=== PATIENT | male | born 1965 | race Caucasian/White ===

== ENCOUNTER 2016-05-21 08:00 | Outpatient (CLI) | payer MEDICAID | END 2016-05-21 08:01 | disposition home or self-care (01) | DX: R39.11 Hesitancy of micturition (principal) ==

== ENCOUNTER 2016-05-21 11:53 | Outpatient (CLI) | payer MEDICAID | END 2016-05-21 11:54 | disposition home or self-care (01) | DX: R39.11 Hesitancy of micturition (principal) ==

== ENCOUNTER 2016-05-22 09:58 | Emergency (ER) | payer MEDICAID ==
[2016-05-22] MEDS ORDERED: SODIUM CHLORIDE 0.9% 1,000 ML IV ONE (10:54)
[2016-05-22] MEDS ORDERED: LIDOCAINE 2% URO-JET 5 ML SYRINGE UR ONE (13:08)
== END 2016-05-22 15:12 | disposition home or self-care (01) ==
DX: E86.0 Dehydration (principal); F17.200 Nicotine dependence, unspecified, uncomplicated

== ENCOUNTER 2016-07-03 14:04 | Outpatient (CLI) | payer MEDICAID ==
--- NOTE | 2016-07-04 08:57 | XRAY Report ---
LEFT KNEE, THREE VIEWS: 07/03/2016 CLINICAL HISTORY: Left knee pain. COMPARISON: None. FINDINGS: Soft tissues demonstrate small left suprapatellar fusion. Bones of the left knee show no acute abnormality. Minimal deformity of the medial aspect of the left fibular head is noted most likely related to old trauma. There is some callus formation seen silhouetting the posterior aspect of the left fibular head and proximal left fibular shaft, old trauma. Patella shows no significant abnormality. IMPRESSION: SUGGESTION OF SMALL LEFT SUPRAPATELLAR EFFUSION. JOB #: [id number] EXT JOB #: [id number] NAVYA
== END 2016-07-03 14:05 | disposition home or self-care (01) ==
LOC: DI.S 14:04
PROVIDERS: ATTEND Nurse Practitioner Family
DX: M25.562 Pain in left knee (principal)

== ENCOUNTER 2018-02-19 07:13 | Outpatient (CLI) | payer MEDICAID ==
[2018-02-19 10:25] LABS: BASOPHILS % (AUTO) 0.6 %; EOSINOPHILS # (AUTO) 0.1 10^3/uL (0.0-0.7); EOSINOPHILS % (AUTO) 1.3 %; HGB - HEMOGLOBIN 15.2 g/dL (14.0-18.0); LYMPHOCYTES # (AUTO) 1.9 10^3/uL (1.5-3.5); LYMPHOCYTES % (AUTO) 25.7 %; MEAN CORPUSCULAR HEMOGLOBIN 30.4 pg (27.0-31.0); MEAN CORPUSCULAR HGB CONC 34.5 g/dL (32.0-36.0); MEAN PLATELET VOLUME 9.1 fL (7.4-11.4); MONOCYTES # (AUTO) 0.8 10^3/uL (0.0-1.0); MONOCYTES % (AUTO) 10.5 %; NEUTROPHILS # (AUTO) 4.5 10^3/uL (1.5-6.6); NEUTROPHILS % (AUTO) 61.9 %; PLT - PLATELET COUNT 232 10^3/uL (130-450); RED BLOOD COUNT 5.01 10^6/uL (4.70-6.10); RED CELL DISTRIBUTION WIDTH 13.4 % (12.0-15.0); WHITE BLOOD COUNT 7.2 x10^3/uL (4.8-10.8)
[2018-02-19 10:30] LABS: ALBUMIN 4.9 g/dL (3.2-5.5); ALBUMIN/GLOBULIN RATIO 1.6 (1.0-2.2); ALKALINE PHOSPHATASE 56 IU/L (42-121); ALT ALANINE AMINOTRANSFERASE 34 IU/L (10-60); AST ASPARTATE AMINOTRANSFERASE 25 IU/L (10-42); BILIRUBIN,TOTAL 0.4 mg/dL (0.2-1.0); BUN - BLOOD UREA NITROGEN 22 mg/dL (6-20); CALCIUM 9.7 mg/dL (8.5-10.3); CARBON DIOXIDE - CO2 28 mmol/L (21-32); CHLORIDE 96 mmol/L (101-111); CHOL/HDL RATIO 2.4 (<5.0); CHOLESTEROL 114 mg/dL; CREATININE 1.1 mg/dL (0.6-1.2); GFR - MDRD 71 (>89); GLUCOSE 113 mg/dL (70-100); HDL CHOLESTEROL 48 mg/dL; SODIUM 134 mmol/L (135-145)
[2018-02-19 10:52] LABS: LDL CHOLESTEROL,DIRECT 58 mg/dL; LDLD/HDL RATIO 1.2 (<3.6)
== END 2018-02-19 07:14 | disposition home or self-care (01) ==
LOC: LAB.F 07:13
PROVIDERS: ATTEND Nurse Practitioner Family
DX: R10.84 Generalized abdominal pain (principal); Z13.220 Encounter for screening for lipoid disorders; Z12.5 Encounter for screening for malignant neoplasm of prostate
CPT/HCPCS: 36415; 80053; 80061; 83721; 84153; 85025

== ENCOUNTER 2018-03-06 06:09 | Day surgery (SDC) | payer MEDICAID ==
[2018-03-06] MEDS ORDERED: LACTATED RINGERS 1,000 ML IV ONE (07:00)
[2018-03-06] MEDS ORDERED: MIDAZOLAM 2 MG/2 ML VIAL IVP ONE (07:57)
[2018-03-06] MEDS ORDERED: fentaNYL 250 MCG/5 ML VIAL IVP ONE (07:57)
[2018-03-06] MEDS ORDERED: PROPOFOL 200 MG/20 ML VIAL IVP ONE (08:20)
[2018-03-06 09:17] VITALS: BP 109/81
== END 2018-03-06 06:10 | disposition home or self-care (01) ==
LOC: SDS 06:09
PROVIDERS: ATTEND Internal Medicine Gastroenterology
PROC: 0DJD8ZZ Inspection of Lower Intestinal Tract, Via Natural or Artificial Opening Endoscopic (ICD-10-PCS; principal; 2018-03-06 07:30)
DX: R19.4 Change in bowel habit (principal); R10.30 Lower abdominal pain, unspecified; K21.9 Gastro-esophageal reflux disease without esophagitis
CPT/HCPCS: 45378; J3010; J7120

== ENCOUNTER 2018-03-14 07:23 | Outpatient (CLI) | payer MEDICAID ==
[2018-03-14] MEDS ORDERED: IOVERSOL 320 50 ML VIAL ONE (07:50)
[2018-03-14] MEDS ORDERED: IOVERSOL 320 100 ML VIAL IVP ONE ×2 (07:50→08:50)
[2018-03-14] MEDS ORDERED: IOVERSOL 320 50 ML VIAL PO ONE (08:50)
--- NOTE | 2018-03-14 09:18 | CT Report ---
Reason: LOWER ABDOMINAL PAIN CHANGE OF BOWEL HABITS Procedure Date: 03/14/2018 Accession Number: [id number] / [id number] Procedure: CT - Abdomen/Pelvis W/ CPT Code: FULL RESULT: EXAM: CT ABDOMEN AND PELVIS EXAM DATE: 03/14/2018 08:48 AM. CLINICAL HISTORY: LOWER ABDOMINAL PAIN CHANGE OF BOWEL HABITS. COMPARISONS: ABDOMEN/PELVIS W/O 05/22/2016 12:45 PM. TECHNIQUE: Routine helical CT imaging was performed through the abdomen and pelvis. IV contrast: opti 320 80 ml. Enteric contrast: Yes. Reconstructions: Coronal and sagittal. In accordance with CT protocol optimization, one or more of the following dose reduction techniques were utilized for this exam: automated exposure control, adjustment of mA and/or KV based on patient size, or use of iterative reconstructive technique. FINDINGS: Lung Bases: 1.5 cm subpleural bleb at the medial basal right lower lobe. Liver: As before, there is a 4 cm long somewhat linear cluster of small dystrophic appearing calcifications superiorly in the anterior right hepatic lobe. Otherwise normal. Gallbladder/Bile Ducts: Unremarkable. Spleen: Normal. Pancreas: Normal. Adrenal Glands: Normal. Kidneys: Normal. No masses or hydronephrosis. Peritoneal Cavity/Bowel: Stomach and small bowel are unremarkable. Enteric contrast reaches mid ileum at the time of the scan. The unopacified terminal ileum is unremarkable. The appendix courses posteriorly from the cecum and is small in size. No appendicoliths are identified currently. There is no periappendiceal fat stranding. There is a small amount of formed stool scattered in the colon. No distinct colonic diverticula are identified. There is no morales colonic wall thickening. There is no focal pericolonic fat stranding. There is no lymphadenopathy, ascites, or pneumoperitoneum. Pelvic Organs: The bladder is normal in size. There is a 1.1 x 1.6 cm calculus in the right posterior bladder which was not present previously. There is no bladder wall thickening or perivesical edema. The prostate gland and seminal vesicles are unremarkable. Vasculature: There is minimal aortoiliac atherosclerotic calcification. Otherwise unremarkable. Bones: No significant abnormality. Other: Body wall is unremarkable. IMPRESSION: 1. 1.1 x 1.6 cm bladder calculus, new since 2017. 2. Linear cluster of dystrophic calcifications superiorly in the anterior right hepatic lobe, as before. 3. No specific findings identified to explain pain. RADIA
== END 2018-03-14 07:24 | disposition home or self-care (01) ==
LOC: DI 07:23
PROVIDERS: ATTEND Internal Medicine Gastroenterology
DX: R10.30 Lower abdominal pain, unspecified (principal); R19.4 Change in bowel habit; N21.0 Calculus in bladder; R16.0 Hepatomegaly, not elsewhere classified
CPT/HCPCS: 74177; Q9967

== ENCOUNTER 2018-05-25 08:44 | Emergency (ER) | payer MEDICAID ==
[2018-05-25 09:33] LABS: BASOPHILS % (AUTO) 0.2 %; HGB - HEMOGLOBIN 13.2 g/dL (14.0-18.0); MEAN CORPUSCULAR HEMOGLOBIN 29.1 pg (27.0-31.0); MEAN CORPUSCULAR HGB CONC 33.4 g/dL (32.0-36.0); MEAN PLATELET VOLUME 8.8 fL (7.4-11.4); MONOCYTES % (AUTO) 7.5 %; NEUTROPHILS % (AUTO) 91.3 %; PLT - PLATELET COUNT 243 10^3/uL (130-450); RED BLOOD COUNT 4.55 10^6/uL (4.70-6.10); RED CELL DISTRIBUTION WIDTH 13.1 % (12.0-15.0); WHITE BLOOD COUNT 21.3 x10^3/uL (4.8-10.8)
[2018-05-25 09:43] LABS: ABNORMAL LYMPHS % (MANUAL) 0 %
[2018-05-25 09:52] LABS: ALBUMIN 3.5 g/dL (3.2-5.5); ALBUMIN/GLOBULIN RATIO 0.7 (1.0-2.2); BILIRUBIN,TOTAL 0.9 mg/dL (0.2-1.0); CREATININE 1.4 mg/dL (0.6-1.2); TOTAL PROTEIN 8.4 g/dL (6.7-8.2)
[2018-05-25 10:49] LABS: BAND NEUTROPHILS % (MANUAL) 11 %; LYMPHOCYTES # (MANUAL) 0.4 10^3/uL (1.5-3.5); LYMPHOCYTES % (MANUAL) 2 %; MONOCYTES # (MANUAL) 0.6 10^3/uL (0.0-1.0); NEUTROPHILS # (MANUAL) 20.2 10^3/uL (1.5-6.6); NEUTROPHILS % (MANUAL) 84 %
[2018-05-25] MEDS ORDERED: IBUPROFEN 800 MG TABLET PO STA (10:49)
[2018-05-25 10:50] LABS: DIFFERENTIAL COMMENT MANUAL DIFFERENTIAL
[2018-05-25] MEDS ORDERED: SODIUM CHLORIDE 0.9% 1,000 ML IV ONE (11:00)
--- NOTE | 2018-05-25 11:04 | ED Physician Documentation ---
History of Present Illness - Stated complaint Stated Complaint: ABD PX/MALE - Chief complaint Chief Complaint: Abd Pain - History obtained from History obtained from: Patient - History of Present Illness Timing: How many weeks ago (2) - Additonal information Additional information: 52-year-old male with a history of bladder stone has developed increased pain in the bladder and a fever and now is developed difficulty urinating. He is finding that he is only able to urinate a very small amount and has a lot of pressure in his bladder. He has an appointment to see the urologist in [place] in 6 weeks. Review of Systems Constitutional: reports: Fever, Chills, Myalgias, Fatigue Eyes: denies: Decreased vision Ears: denies: Ear pain Nose: denies: Rhinorrhea / runny nose, Congestion Throat: denies: Sore throat Cardiac: denies: Chest pain / pressure, Palpitations Respiratory: denies: Dyspnea, Cough GI: reports: Abdominal Pain, Nausea, Diarrhea : reports: Dysuria, Unable to Void Skin: denies: Rash Musculoskeletal: reports: Back pain. denies: Neck pain Neurologic: reports: Generalized weakness. denies: Focal weakness, Numbness PD PAST MEDICAL HISTORY - Past Medical History Cardiovascular: None Respiratory: None Endocrine/Autoimmune: None - Past Surgical History Past Surgical History: Yes Ortho: Other HEENT: Tonsil/Adenoidectomy - Present Medications Home Medications: Ambulatory Orders Medication Instructions Recorded Confirmed Tamsulosin [Flomax] 0 mg PO DAILY 05/22/16 05/22/16 Ciprofloxacin HCl [Cipro] 500 mg PO BID #20 tablet 05/25/18 - Allergies Allergies/Adverse Reactions: Allergies Allergy/AdvReac Type Severity Reaction Status Date / Time Penicillins Allergy Hives Verified 05/25/18 09:06 aspirin AdvReac Unknown Verified 05/25/18 09:06 - Social History Does the pt smoke?: Yes Smoking Status: Current every day smoker Does the pt drink ETOH?: No Does the pt have substance abuse?: Yes Substance Use and Type: Marijuana PD ED PE NORMAL - Vitals Vital signs reviewed: Yes (tachy ) - General General: Alert and oriented X 3, No acute distress, Well developed/nourished - HEENT HEENT: Atraumatic, PERRL, EOMI - Neck Neck: Supple, no meningeal sign - Cardiac Cardiac: No murmur, Other (tachy to 120) - Respiratory Respiratory: No respiratory distress, Clear bilaterally - Abdomen Abdomen: Soft, Other (mild suprapubic tenderness to palpation ) - Back Back: No CVA TTP, No spinal TTP - Derm Derm: Normal color, No rash - Extremities Extremities: No deformity, No edema - Neuro Neuro: Alert and oriented X 3, staff genetic counselor 2-12 intact, No motor deficit, No sensory deficit, Normal speech Eye Opening: Spontaneous Motor: Obeys Commands Verbal: Oriented GCS Score: 15 - Psych Psych: Normal mood, Normal affect Results - Vitals Vitals: Vital Signs - 24 hr 05/25/18 05/25/18 05/25/18 09:04 10:06 10:39 Temperature 37.3 C 37.6 C H 39.7 C H Heart Rate 112 H Respiratory 18 Rate Blood Pressure 119/78 O2 Saturation 100 Oxygen O2 Source Room air - Labs Labs: Laboratory Tests 05/25/18 05/25/18 05/25/18 09:15 09:27 09:27 WBC 21.3 H RBC 4.55 L Hgb 13.2 L Hct 39.6 L MCV 87.0 MCH 29.1 MCHC 33.4 RDW 13.1 Plt Count 243 MPV 8.8 Neut # (Auto) Not Reportable Lymph # (Auto) Not Reportable [place] # (Auto) Not Reportable Eos # (Auto) Not Reportable Baso # (Auto) Not Reportable Absolute Nucleated RBC Not Reportable Total Counted 100 Band Neuts % (Manual) 11 H Abnorm Lymph % (Manual) 0 Nucleated RBC % Not Reportable Neutrophils # (Manual) 20.2 H Lymphocytes # (Manual) 0.4 L Monocytes # (Manual) 0.6 Eosinophils # (Manual) 0.0 Basophils # (Manual) 0.0 Differential Comment MANUAL DIFFERENTIAL WBC Morphology 1+ DOHLE BODIES Sodium 135 Potassium 3.8 Chloride 90 L Carbon Dioxide 30 Anion Gap 15.0 H BUN 27 H Creatinine 1.4 H Estimated GFR (MDRD) 54 L Glucose 157 H Lactic Acid Calcium 9.0 Total Bilirubin 0.9 AST 77 H ALT 144 H Alkaline Phosphatase 121 Total Protein 8.4 H Albumin 3.5 Globulin 4.9 H Albumin/Globulin Ratio 0.7 L Lipase 21 L Urine Color Cancelled Urine Clarity Cancelled Urine pH Cancelled Ur Specific [place] Cancelled Urine Protein Cancelled Urine Glucose (UA) Cancelled Urine Ketones Cancelled Urine Occult Blood Cancelled Urine Nitrite Cancelled Urine Bilirubin Cancelled Urine Urobilinogen Cancelled Ur Leukocyte Esterase Cancelled Urine RBC Urine WBC Ur Squamous Epith Cells Urine Bacteria Urine Casts Urine Mucus Ur Microscopic Review Cancelled Urine Culture Comments Cancelled 05/25/18 05/25/18 11:12 11:20 WBC RBC Hgb Hct MCV MCH MCHC RDW Plt Count MPV Neut # (Auto) Lymph # (Auto) [place] # (Auto) Eos # (Auto) Baso # (Auto) Absolute Nucleated RBC Total Counted Band Neuts % (Manual) Abnorm Lymph % (Manual) Nucleated RBC % Neutrophils # (Manual) Lymphocytes # (Manual) Monocytes # (Manual) Eosinophils # (Manual) Basophils # (Manual) Differential Comment WBC Morphology Sodium Potassium Chloride Carbon Dioxide Anion Gap BUN Creatinine Estimated GFR (MDRD) Glucose Lactic Acid 2.0 Calcium Total Bilirubin AST ALT Alkaline Phosphatase Total Protein Albumin Globulin Albumin/Globulin Ratio Lipase Urine Color YELLOW Urine Clarity HAZY Urine pH 5.5 Ur Specific [place] >=1.030 H Urine Protein 100 H Urine Glucose (UA) NEGATIVE Urine Ketones 15 H Urine Occult Blood SMALL H Urine Nitrite NEGATIVE Urine Bilirubin NEGATIVE Urine Urobilinogen 0.2 (NORMAL) Ur Leukocyte Esterase NEGATIVE Urine RBC 0-5 Urine WBC 6-10 H Ur Squamous Epith Cells FEW Squamous Urine Bacteria Many H Urine Casts >50 Hyaline Casts Urine Mucus Few Strands Ur Microscopic Review INDICATED Urine Culture Comments INDICATED Procedures - Bedside sono Bedside sono by EMP: With use of bedside ultrasound the bladder is imaged there is some urine in it and the stone measuring 1.9 cm is in the left recess of the bladder. - IVC sono (time) 1055 Bedside IVC sono: IVC measures (cm) (1.6), IVC collapsed c insp (cm) (complete), Low CVP PD MEDICAL DECISION MAKING - ED course Complexity details: reviewed old records, reviewed results, re-evaluated patient, considered differential, d/w patient ED course: 52-year-old male with a known bladder stone has had fever now decreased urine output he does not appear to be obstructed.The patient does appear ill and saline is begun the urine is retrieved by catheter and antibiotics and saline are begun. There is evidence of infection. Dr. Escalante urology in [place] is consulted in the case and recommends antibiotic therapy and follow up in urology clinic for elective removal of stone. I did specifically ask about admission and this is not needed at this time. The patient appears improved and he is discharged to follow up with urology. Departure - Departure Disposition: 01 Home, Self Care Clinical Impression: Bladder calculus Urinary tract infection Qualifiers: Urinary tract infection type: acute cystitis Hematuria presence: without hematuria Qualified Code(s): N30.00 - Acute cystitis without hematuria Condition: Stable Instructions: ED UTI Cystitis Male Follow-Up: Madelaine Cheung ARNP [Primary Care Provider] - LASHAY ESCALANTE [Physician No Access] - Prescriptions: Ciprofloxacin HCl [Cipro] 500 mg PO BID #20 tablet
[2018-05-25] MEDS ORDERED: cefTRIAXone 2 GM in SODIUM CHLORIDE 0.9% MINIBAG 100 ML IV STA (11:07)
[2018-05-25 11:32] LABS: GLUCOSE, URINE (UA) NEGATIVE (NEGATIVE); KETONES,URINE (UA) 15 mg/dL (NEGATIVE); LEUKOCYTE ESTERASE, URINE NEGATIVE (NEGATIVE); NITRITE,URINE NEGATIVE (NEGATIVE); OCCULT BLOOD,URINE SMALL (NEGATIVE); PH,URINE 5.5 PH (5.0-7.5); PROTEIN,URINE 100 mg/dL (NEGATIVE); UROBILINOGEN,URINE 0.2 (NORMAL) E.U./dL (NORMAL)
[2018-05-25 11:52] LABS: CLARITY,URINE HAZY (CLEAR)
[2018-05-25 11:53] LABS: BACTERIA,URINE Many /HPF (None Seen); BILIRUBIN,URINE NEGATIVE (NEGATIVE); ICTOTEST,URINE NEGATIVE; MUCUS,URINE Few Strands; RBC,URINE 0-5 /HPF (0-5); SQUAMOUS EPITHELIAL CELL,UR FEW Squamous (<= Few)
[2018-05-25 12:52] VITALS: BP 113/96
== END 2018-05-25 13:00 | disposition home or self-care (01) ==
LOC: ED 08:44
DX: N21.0 Calculus in bladder (principal); N30.00 Acute cystitis without hematuria; F17.200 Nicotine dependence, unspecified, uncomplicated
CPT/HCPCS: 36415; 80053; 81001; 83605; 83690; 85025; 87040; 87086; 96374; 99283; 99284; A9270; 81003

== ENCOUNTER 2018-06-01 07:09 | Outpatient (CLI) | payer MEDICAID | END 2018-06-01 07:10 | disposition critical access hospital (66) | LOC: EMS 07:09 | PROVIDERS: ATTEND Surgery | DX: R21 Rash and other nonspecific skin eruption (principal); R11.2 Nausea with vomiting, unspecified | CPT/HCPCS: A0425; A0429 ==

== ENCOUNTER 2018-06-01 07:37 | Emergency (ER) | payer MEDICAID ==
[2018-06-01] MEDS ORDERED: SODIUM CHLORIDE 0.9% 1,000 ML IV ONE ×4 (08:04→11:41)
[2018-06-01] MEDS ORDERED: ONDANSETRON 4 MG/2 ML VIAL IVP STA (08:12)
[2018-06-01] MEDS ORDERED: HYDROmorphone 1 MG/ML CARPUJECT IVP STA (08:12)
--- NOTE | 2018-06-01 08:12 | ED Physician Documentation ---
History of Present Illness - Stated complaint Stated Complaint: BODY RASH - Chief complaint Chief Complaint: General - History obtained from History obtained from: Patient - History of Present Illness Timing: How many days ago (Several days) Pain level max: 7 Pain level now: 5 - Additonal information Additional information: 52-year-old male presents the emergency department complaint of diffuse abdominal pain as well as vomiting for the past several days. He was started on ciprofloxacin for an infected bladder stone, and has now developed diffuse urticaria. He stopped the ciprofloxacin a few days ago, the hives do seem to be improving. He has an appointment with urology in approximately 4-6 weeks for removal of the bladder stone. He states he is unable to keep anything down at this time. Nothing makes it better or worse Review of Systems Ten Systems: 10 systems reviewed and negative Constitutional: reports: Fever, Chills Ears: denies: Ear pain Nose: denies: Rhinorrhea / runny nose, Congestion Throat: denies: Sore throat Cardiac: denies: Chest pain / pressure Respiratory: denies: Cough GI: reports: Nausea, Vomiting, Diarrhea, Bloody / black stool (Has had dark stools but is taking Pepto-Bismol) Skin: denies: Rash Musculoskeletal: denies: Neck pain, Back pain Neurologic: denies: Focal weakness, Numbness, Headache PD PAST MEDICAL HISTORY - Past Medical History Cardiovascular: None Respiratory: None Endocrine/Autoimmune: None - Past Surgical History Past Surgical History: Yes Ortho: Other HEENT: Tonsil/Adenoidectomy - Present Medications Home Medications: Ambulatory Orders Medication Instructions Recorded Confirmed Cefdinir 300 mg PO BID #20 capsule 06/01/18 Ondansetron Odt [Zofran] 4 mg TL Q6H PRN #10 tablet 06/01/18 - Allergies Allergies/Adverse Reactions: Allergies Allergy/AdvReac Type Severity Reaction Status Date / Time Penicillins Allergy Hives Verified 06/01/18 07:55 aspirin AdvReac Unknown Verified 06/01/18 07:55 - Social History Does the pt smoke?: Yes Smoking Status: Current every day smoker Does the pt drink ETOH?: No Does the pt have substance abuse?: Yes - Immunizations Immunizations are current?: Yes PD ED PE NORMAL - Vitals Vital signs reviewed: Yes - General General: Alert and oriented X 3, No acute distress, Well developed/nourished - HEENT HEENT: PERRL, Moist mucous membranes - Neck Neck: Supple, no meningeal sign - Cardiac Cardiac: RRR, Strong equal pulses - Respiratory Respiratory: No respiratory distress, Clear bilaterally - Abdomen Abdomen: Soft, Non distended, Other (Diffusely tender to palpation. No peritoneal signs) - Back Back: No CVA TTP, No spinal TTP - Derm Derm: Warm and dry, Other (Diffuse urticaria) - Extremities Extremities: No edema, No calf tenderness / cord - Neuro Neuro: Alert and oriented X 3 - Psych Psych: Normal mood, Normal affect Results - Vitals Vitals: Vital Signs - 24 hr 06/01/18 06/01/18 06/01/18 07:51 07:59 08:31 Temperature 38.1 C H 37.4 C Heart Rate 110 H 108 H Respiratory 18 16 Rate Blood Pressure 113/80 117/79 O2 Saturation 99 98 06/01/18 06/01/18 06/01/18 08:52 11:07 11:49 Temperature 37.2 C Heart Rate 103 H 50 L 50 L Respiratory 16 18 18 Rate Blood Pressure 109/67 99/52 L 111/60 O2 Saturation 99 96 96 06/01/18 12:50 Temperature 38.1 C H Heart Rate 99 Respiratory 18 Rate Blood Pressure 108/58 L O2 Saturation 99 Oxygen O2 Source Room air - Labs Labs: Laboratory Tests 06/01/18 06/01/18 06/01/18 08:20 08:20 08:20 WBC 18.8 H RBC 3.77 L Hgb 11.0 L Hct 32.4 L MCV 86.0 MCH 29.1 MCHC 33.8 RDW 12.9 Plt Count 422 MPV 9.3 Neut # (Auto) 17.2 H Lymph # (Auto) 0.8 L [place] # (Auto) 0.7 Eos # (Auto) 0.0 Baso # (Auto) 0.0 Absolute Nucleated RBC 0.00 Nucleated RBC % 0.0 Manual Slide Review Indicated Platelet Estimate NORMAL (130-450,000) Platelet Morphology NORMAL APPEARANCE RBC Morph Micro Appear NORMAL APPEARANCE Sodium 126 L Potassium 3.3 L Chloride 84 L Carbon Dioxide 29 Anion Gap 13.0 BUN 29 H Creatinine 0.9 Estimated GFR (MDRD) 89 Glucose 149 H Lactic Acid 1.3 Calcium 7.7 L Total Bilirubin 0.8 AST 67 H ALT 67 H Alkaline Phosphatase 108 Total Protein 6.6 L Albumin 2.1 L Globulin 4.5 H Albumin/Globulin Ratio 0.5 L Lipase 17 L Urine Color Urine Clarity Urine pH Ur Specific [place] Urine Protein Urine Glucose (UA) Urine Ketones Urine Occult Blood Urine Nitrite Urine Bilirubin Urine Urobilinogen Ur Leukocyte Esterase Ur Microscopic Review Urine Culture Comments Urine Opiates Screen Ur Oxycodone Screen Urine Methadone Screen Ur Propoxyphene Screen Ur Barbiturates Screen Ur Tricyclics Screen Ur Phencyclidine Scrn Ur Amphetamine Screen U Methamphetamines Scrn U Benzodiazepines Scrn Urine Cocaine Screen U Cannabinoids Screen 06/01/18 10:27 WBC RBC Hgb Hct MCV MCH MCHC RDW Plt Count MPV Neut # (Auto) Lymph # (Auto) [place] # (Auto) Eos # (Auto) Baso # (Auto) Absolute Nucleated RBC Nucleated RBC % Manual Slide Review Platelet Estimate Platelet Morphology RBC Morph Micro Appear Sodium Potassium Chloride Carbon Dioxide Anion Gap BUN Creatinine Estimated GFR (MDRD) Glucose Lactic Acid Calcium Total Bilirubin AST ALT Alkaline Phosphatase Total Protein Albumin Globulin Albumin/Globulin Ratio Lipase Urine Color YELLOW Urine Clarity CLEAR Urine pH 6.0 Ur Specific [place] <=1.005 Urine Protein NEGATIVE Urine Glucose (UA) NEGATIVE Urine Ketones NEGATIVE Urine Occult Blood TRACE-INTA Urine Nitrite NEGATIVE Urine Bilirubin NEGATIVE Urine Urobilinogen 0.2 (NORMAL) Ur Leukocyte Esterase NEGATIVE Ur Microscopic Review NOT INDICATED Urine Culture Comments NOT INDICATED Urine Opiates Screen POSITIVE H Ur Oxycodone Screen NEGATIVE Urine Methadone Screen NEGATIVE Ur Propoxyphene Screen NEGATIVE Ur Barbiturates Screen NEGATIVE Ur Tricyclics Screen NEGATIVE Ur Phencyclidine Scrn NEGATIVE Ur Amphetamine Screen NEGATIVE U Methamphetamines Scrn NEGATIVE U Benzodiazepines Scrn NEGATIVE Urine Cocaine Screen NEGATIVE U Cannabinoids Screen POSITIVE H - Rads (name of study) CT abd/pelvis Radiology: Prelim report reviewed, EMP read contemporaneously, See rad report (1. No acute imaging findings to explain vomiting and abdominal pain. 2. Appendix is difficult to visualize but likely normal in size with a small appendicolith and no surrounding inflammatory change. 3. 1.7 cm bladder calculus, unchanged. 4. Coarse calcifications in the hepatic dome, unchanged. ) PD MEDICAL DECISION MAKING - ED course Complexity details: reviewed old records, reviewed results, re-evaluated patient, considered differential, d/w patient ED course: 52-year-old male presents to the emergency department with significant dehydration, likely secondary to vomiting. He does use marijuana daily, possible cannabinoid induced hyperemesis? He has hyponatremic. He was given Zofran and Haldol. Vomiting resolved she was tolerating p.o. without difficulty. No acute findings found on CT scan. Urinalysis is negative but he did not finish his ciprofloxacin secondary to urticaria, therefore will place on cefdinir. Patient is well-appearing, nontoxic. Initial temperature was temporally, there was no fever when taken orally. Patient does have leukocytosis but this is decreased from prior and is likely secondary to stress from vomiting. No evidence of sepsis. Blood cultures were drawn and sent. Patient is tolerating p.o. without difficulty here. No vomiting. Patient cou nseled regarding signs and symptoms for which I believe and urgent re-evaluation would be necessary. Patient with good understanding of and agreement to plan and is comfortable going home at this time This document was made in part using voice recognition software. While efforts are made to proofread this document, sound alike and grammatical errors may occur. Departure - Departure Disposition: 01 Home, Self Care Clinical Impression: Urticaria, Cannabinoid hyperemesis syndrome, Dehydration, Hyponatremia Condition: Good Instructions: ED Dehydration, ED Nausea Vomiting Follow-Up: Madelaine Cheung ARNP [Primary Care Provider] - Prescriptions: Cefdinir 300 mg PO BID #20 capsule Ondansetron Odt [Zofran] 4 mg TL Q6H PRN #10 tablet PRN Reason: Nausea / Vomiting Comments: Drink plenty of fluids and rest. Return if you worsen. You should stop using marijuana as you may be suffering from cannabinoid-induced hyperemesis syndrome. This may take several months to resolved, but can often be improved with medications. Warm showers may also help. You were dehydrated today and need to increase your fluid intake. You also need to try to eat at home. Discharge Date/Time: 06/01/18 12:58
[2018-06-01] MEDS ORDERED: IOVERSOL 320 100 ML VIAL IVP ONE ×2 (08:19→09:26)
[2018-06-01] MEDS ORDERED: diphenhydrAMINE INJ 50 MG/ML VIAL IVP STA (08:22)
[2018-06-01 08:44] LABS: ALBUMIN 2.1 g/dL (3.2-5.5); ALBUMIN/GLOBULIN RATIO 0.5 (1.0-2.2); BILIRUBIN,TOTAL 0.8 mg/dL (0.2-1.0); CALCIUM 7.7 mg/dL (8.5-10.3); CREATININE 0.9 mg/dL (0.6-1.2); TOTAL PROTEIN 6.6 g/dL (6.7-8.2)
[2018-06-01 09:04] LABS: BASOPHILS % (AUTO) 0.2 %; LYMPHOCYTES # (AUTO) 0.8 10^3/uL (1.5-3.5); LYMPHOCYTES % (AUTO) 4.3 %; MEAN CORPUSCULAR HEMOGLOBIN 29.1 pg (27.0-31.0); MEAN CORPUSCULAR HGB CONC 33.8 g/dL (32.0-36.0); MEAN PLATELET VOLUME 9.3 fL (7.4-11.4); MONOCYTES # (AUTO) 0.7 10^3/uL (0.0-1.0); MONOCYTES % (AUTO) 3.7 %; NEUTROPHILS # (AUTO) 17.2 10^3/uL (1.5-6.6); NEUTROPHILS % (AUTO) 91.8 %; PLT - PLATELET COUNT 422 10^3/uL (130-450); RED BLOOD COUNT 3.77 10^6/uL (4.70-6.10); RED CELL DISTRIBUTION WIDTH 12.9 % (12.0-15.0); WHITE BLOOD COUNT 18.8 x10^3/uL (4.8-10.8)
--- NOTE | 2018-06-01 09:34 | CT Report ---
Reason: diffuse abd pain, vomiting Procedure Date: 06/01/2018 Accession Number: [id number] / [id number] Procedure: CT - Abdomen/Pelvis W CPT Code: FULL RESULT: EXAM: CT ABDOMEN AND PELVIS EXAM DATE: 06/01/2018 08:52 AM. CLINICAL HISTORY: Diffuse abd pain, vomiting. COMPARISONS: CT abdomen and pelvis dated 03/14/2018. TECHNIQUE: Routine helical CT imaging was performed through the abdomen and pelvis. IV contrast: 100 cc Optiray 320. Enteric contrast: No. Reconstructions: Coronal and sagittal. In accordance with CT protocol optimization, one or more of the following dose reduction techniques were utilized for this exam: automated exposure control, adjustment of mA and/or KV based on patient size, or use of iterative reconstructive technique. FINDINGS: Lung Bases: Subpleural bleb at the medial right lung base, unchanged. Liver: Cluster of coarse calcifications in the hepatic dome, unchanged. Gallbladder/Bile Ducts: Unremarkable. Spleen: Normal. Pancreas: Normal. Adrenal Glands: Normal. Kidneys: Subcentimeter hypodense lesion in the mid posterior left kidney, too small to fully characterize but likely a cyst. Otherwise, no masses or hydronephrosis. Peritoneal Cavity/Bowel: Normal. No free fluid, free air or adenopathy. No masses or acute inflammatory process. The appendix is difficult to visualize but is likely normal in size with a small appendicolith (image 3/68). Pelvic Organs: 1.7 cm calculus is seen in the right dependent portion of the bladder. The bladder and visualized pelvic organs are otherwise within normal limits. Vasculature: No aneurysms or other significant abnormality. Bones: No significant abnormality. Other: None. IMPRESSION: 1. No acute imaging findings to explain vomiting and abdominal pain. 2. Appendix is difficult to visualize but likely normal in size with a small appendicolith and no surrounding inflammatory change. 3. 1.7 cm bladder calculus, unchanged. 4. Coarse calcifications in the hepatic dome, unchanged. RADIA
[2018-06-01 09:40] LABS: PLATELET ESTIMATE, MANUAL NORMAL (130-450,000) (NORMAL); PLATELET MORPHOLOGY NORMAL APPEARANCE (NORMAL); RBC MORPHOLOGY (MULTIPLE) NORMAL APPEARANCE (NORMAL)
[2018-06-01 10:29] LABS: MUDS CUTOFF CONCENTRATIONS CUTOFF CONC BELOW:
[2018-06-01 10:32] LABS: BILIRUBIN,URINE NEGATIVE (NEGATIVE); GLUCOSE, URINE (UA) NEGATIVE (NEGATIVE); KETONES,URINE (UA) NEGATIVE (NEGATIVE); LEUKOCYTE ESTERASE, URINE NEGATIVE (NEGATIVE); NITRITE,URINE NEGATIVE (NEGATIVE); OCCULT BLOOD,URINE TRACE-INTA (NEGATIVE); PROTEIN,URINE NEGATIVE (NEGATIVE); UROBILINOGEN,URINE 0.2 (NORMAL) E.U./dL (NORMAL)
[2018-06-01 10:36] LABS: CLARITY,URINE CLEAR (CLEAR)
[2018-06-01 10:56] LABS: COCAINE SCREEN URINE NEGATIVE (NEGATIVE); METHAMPHETAMINES SCREEN, URINE NEGATIVE (NEGATIVE); OPIATE SCREEN, URINE POSITIVE (NEGATIVE)
[2018-06-01 10:57] LABS: AMPHETAMINE SCREEN,URINE NEGATIVE (NEGATIVE); BENZODIAZEPINES SCREEN, URINE NEGATIVE (NEGATIVE); METHADONE SCREEN, URINE NEGATIVE (NEGATIVE); OXYCODONE SCREEN, URINE NEGATIVE (NEGATIVE); PROPOXYPHENE SCREEN, URINE NEGATIVE (NEGATIVE); TRICYCLIC ANTIDEPRESSANT,URINE NEGATIVE (NEGATIVE)
[2018-06-01] MEDS ORDERED: HALOPERIDOL 5 MG/ML VIAL IVP STA (11:02)
[2018-06-01] MEDS ORDERED: DEXAMETHASONE 10 MG/ML VIAL IVP STA (12:42)
[2018-06-01 13:01] VITALS: BP 108/58
== END 2018-06-01 12:58 | disposition home or self-care (01) ==
LOC: EDUNIT# → ED 07:37
DX: L50.9 Urticaria, unspecified (principal); T40.7X1A Poisoning by cannabis (derivatives), accidental (unintentional), initial encounter; F12.988 Cannabis use, unspecified with other cannabis-induced disorder; R11.2 Nausea with vomiting, unspecified; E86.0 Dehydration; E87.1 Hypo-osmolality and hyponatremia; F17.200 Nicotine dependence, unspecified, uncomplicated
CPT/HCPCS: 36415; 74177; 80053; 80306; 81003; 83605; 83690; 85025; 87040; 96361; 96374; 96375; 99284; J1170; J1200; Q9967; 81001; 87086

== ENCOUNTER 2018-06-23 18:38 | Outpatient (CLI) | payer MEDICAID | END 2018-06-23 18:39 | disposition critical access hospital (66) | LOC: EMS 18:38 | PROVIDERS: ATTEND Surgery | DX: R39.9 Unspecified symptoms and signs involving the genitourinary system (principal); R10.30 Lower abdominal pain, unspecified | CPT/HCPCS: A0425; A0429; A0999 ==

== ENCOUNTER 2018-06-23 19:08 | Emergency (ER) | payer MEDICAID ==
[2018-06-23] MEDS ORDERED: LIDOCAINE 2% URO-JET 5 ML SYRINGE UR STA (19:16)
--- NOTE | 2018-06-23 19:17 | ED Physician Documentation ---
PD HPI ABD PAIN - Stated complaint Stated Complaint: BLADDER STONE REMOVAL - Chief complaint Chief Complaint: Abd Pain - History obtained from History obtained from: Patient - History of Present Illness Timing - onset: Today (He had a bladder stone removed at [place] today, left the hospital a few hours ago and has not been able to urinate since. He had other non-urologic surgeries in the past but no history of urinary retention.) Review of Systems Constitutional: reports: Reviewed and negative Nose: reports: Reviewed and negative Cardiac: reports: Reviewed and negative Respiratory: reports: Reviewed and negative PD PAST MEDICAL HISTORY - Past Medical History Cardiovascular: None Respiratory: None Endocrine/Autoimmune: None - Past Surgical History Past Surgical History: Yes Ortho: Other HEENT: Tonsil/Adenoidectomy - Present Medications Home Medications: Ambulatory Orders Medication Instructions Recorded Confirmed Phenazopyridine HCl [Pyridium] 200 mg PO TID PRN 06/23/18 06/23/18 RX: Sulfamethox/Trimeth 800/160 1 tab PO BID 06/23/18 06/23/18 [Bactrim Ds] - Allergies Allergies/Adverse Reactions: Allergies Allergy/AdvReac Type Severity Reaction Status Date / Time Penicillins Allergy Hives Verified 06/23/18 19:14 aspirin AdvReac Unknown Verified 06/23/18 19:14 - Social History Does the pt smoke?: Yes Smoking Status: Current every day smoker Does the pt drink ETOH?: No Does the pt have substance abuse?: Yes - Immunizations Immunizations are current?: Yes PD ED PE NORMAL - Vitals Vital signs reviewed: Yes - General General: Alert and oriented X 3, No acute distress - Cardiac Cardiac: RRR, No murmur - Respiratory Respiratory: Clear bilaterally - Abdomen Abdomen: Soft, Non tender, Other (Bladder is easily palpable in the pelvis and greater than 500 ml on bladder scan.) - Neuro Neuro: Alert and oriented X 3, Normal speech Results - Vitals Vitals: Vital Signs - 24 hr 06/23/18 19:11 Temperature 37.3 C Heart Rate 113 H Respiratory 16 Rate Blood Pressure 131/84 H O2 Saturation 99 Oxygen O2 Source Room air PD MEDICAL DECISION MAKING - ED course ED course: This is a gentleman who presents with postoperative urinary retention, feeling better after Maxwell placement. Discussed the case with his urologist, Dr. Branch who recommends leaving the Maxwell in with a leg bag and he will follow-up with him. Departure - Departure Disposition: 01 Home, Self Care Clinical Impression: Postoperative urinary retention Condition: Good Record reviewed to determine appropriate education?: Yes Instructions: ED Catheter Care Maxwell Comments: Touch base with Dr. Branch in 2 to 3 days to discuss catheter removal. Discharge Date/Time: 06/23/18 20:05
[2018-06-23 19:57] VITALS: BP 131/84
== END 2018-06-23 20:05 | disposition home or self-care (01) ==
LOC: EDUNIT# → ED 19:08
DX: R33.8 Other retention of urine (principal); Z98.890 Other specified postprocedural states; F17.200 Nicotine dependence, unspecified, uncomplicated
CPT/HCPCS: 51702; 99282; 99283

== ENCOUNTER 2019-05-15 07:41 | Outpatient (CLI) | payer MEDICAID | END 2019-05-15 07:42 | disposition critical access hospital (66) | LOC: EMS 07:41 | PROVIDERS: ATTEND Surgery | DX: N36.8 Other specified disorders of urethra (principal) | CPT/HCPCS: A0425; A0429 ==

== ENCOUNTER 2019-05-15 08:13 | Emergency (ER) | payer MEDICAID ==
[2019-05-15] MEDS ORDERED: KETOROLAC 30 MG/ML VIAL IVP STA (08:30)
[2019-05-15] MEDS ORDERED: SODIUM CHLORIDE 0.9% 1,000 ML IV ONE (08:30)
[2019-05-15] MEDS ORDERED: PHENAZOPYRIDINE 100 MG TABLET PO STA (08:31)
--- NOTE | 2019-05-15 08:34 | ED Physician Documentation ---
History of Present Illness - Stated complaint Stated Complaint: BLADDER PAIN - Chief complaint Chief Complaint: Abd Pain - Additonal information Additional information: Patient comes emergency department complaining of ongoing hematuria and dysuria since passing a stone 2 days ago. Patient states he has a long standing history of kidney stones and that he has had to have a stent placed before. Patient states that he has been having what feel like bladder spasms and that when he has a spasm, he is incontinent of urine. He states that in between, however, he is able to hold his urine. Patient denies fevers or chills. No nausea or vomiting. He states he is otherwise healthy and works as a payroll consultant. No cough or shortness of breath recently. No sick contacts. No other complaints at this time. Review of Systems Ten Systems: 10 systems reviewed and negative Constitutional: reports: Reviewed and negative Eyes: reports: Reviewed and negative Ears: reports: Reviewed and negative Nose: reports: Reviewed and negative Throat: reports: Reviewed and negative Cardiac: reports: Reviewed and negative Respiratory: reports: Reviewed and negative GI: reports: Abdominal Pain : reports: Dysuria, Frequency, Incontinent, Hematuria Skin: reports: Reviewed and negative Musculoskeletal: reports: Reviewed and negative Neurologic: reports: Reviewed and negative Psychiatric: reports: Reviewed and negative Endocrine: reports: Reviewed and negative Immunocompromised: reports: Reviewed and negative PD PAST MEDICAL HISTORY - Past Medical History Cardiovascular: None Respiratory: None Neuro: None Endocrine/Autoimmune: None GI: None : None HEENT: None Psych: None Musculoskeletal: None Derm: None - Past Surgical History Past Surgical History: Yes Ortho: Other HEENT: Tonsil/Adenoidectomy - Present Medications Home Medications: Ambulatory Orders Medication Instructions Recorded Confirmed Phenazopyridine HCl [Pyridium] 200 mg PO TID PRN 06/23/18 06/23/18 Sulfamethox/Trimeth 800/160 1 tab PO BID 06/23/18 06/23/18 [Bactrim Ds] Phenazopyridine HCl [Pyridium] 200 mg PO TID PRN #6 tablet 05/15/19 traMADol [Ultram] 50 mg PO Q6H 3 Days #12 tablet 05/15/19 - Allergies Allergies/Adverse Reactions: Allergies Allergy/AdvReac Type Severity Reaction Status Date / Time Penicillins Allergy Hives Verified 05/15/19 08:26 aspirin AdvReac Unknown Verified 05/15/19 08:26 ciprofloxacin AdvReac Hives Verified 05/15/19 08:28 - Social History Does the pt smoke?: Yes Smoking Status: Current every day smoker Does the pt drink ETOH?: No Does the pt have substance abuse?: Yes - Immunizations Immunizations are current?: Yes - POLST Patient has POLST: No PD ED PE NORMAL - Vitals Vital signs reviewed: Yes - General General: Alert and oriented X 3, No acute distress, Well developed/nourished - HEENT HEENT: Atraumatic, PERRL, EOMI, Moist mucous membranes - Neck Neck: Supple, no meningeal sign - Cardiac Cardiac: RRR, No murmur - Respiratory Respiratory: No respiratory distress, Clear bilaterally - Abdomen Abdomen: Soft, Non distended, Other (Moderate tenderness, suprapubic region and slightly to the right.) - Derm Derm: Normal color, Warm and dry, No rash - Extremities Extremities: No deformity, No edema - Neuro Neuro: Alert and oriented X 3, pulling unit operator 2-12 intact, No motor deficit, No sensory deficit, Normal speech - Psych Psych: Normal mood, Normal affect Results - Vitals Vitals: Vital Signs - 24 hr 05/15/19 05/15/19 08:13 11:10 Temperature 37.4 C Heart Rate 92 84 Respiratory 16 16 Rate Blood Pressure 129/96 H 124/80 O2 Saturation 97 Oxygen O2 Source Room air - Labs Labs: Laboratory Tests 05/15/19 10:13 Urine Color DARK YELLOW Urine Clarity CLEAR Urine pH 5.5 Ur Specific [place] >=1.030 H Urine Protein 100 H Urine Glucose (UA) NEGATIVE Urine Ketones TRACE Urine Occult Blood LARGE H Urine Nitrite NEGATIVE Urine Bilirubin NEGATIVE Urine Urobilinogen 0.2 (NORMAL) Ur Leukocyte Esterase NEGATIVE Urine RBC TNTC H Urine WBC 0-3 Ur Squamous Epith Cells RARE Squamous Urine Bacteria Few Urine Mucus Few Strands Ur Microscopic Review INDICATED Urine Culture Comments NOT INDICATED - Rads (name of study) CT abdomen pelvis Radiology: Final report received, EMP read indepedently, See rad report (Final radiologist interpretation: The kidneys demonstrate no evidence of hydronephrosis or obstructing stone; there is a simple cyst emanating from the lateral cortex of the left kidney. No follow-up imaging is indicated per current consensus based on imaging criteria. There are multiple stones within the urinary bladder. There is no evidence of urinary bladder wall thickening. Borderline dilatation of distal appendix; it measures up to 2.8 cm in diameter. There is no definite evidence of adjacent inflammation. Early appendicitis cannot be fully excluded. Clinical correlation recommended.) PD MEDICAL DECISION MAKING - ED course Complexity details: reviewed old records, reviewed results, re-evaluated patient, considered differential, d/w patient ED course: Patient was worked up with urinalysis and CT of the abdomen and pelvis without contrast. He was also given IV fluids because he did not think he would be able to urinate without hydration.Patient's urinalysis was negative for infection but positive for blood. He was found on CT to have multiple urinary calculi in his bladder. However, none were found to be in the ureters. I discussed with the patient that he has multiple stones that need to pass from his bladder, and as such, he should be drinking plenty of fluids. I have given him Pyridium to help with the irritation, as well as analgesia. Patient is advised to follow-up with his primary care physician and possibly, urology, with whom he is already established, if the stones do not pass in the next couple of weeks. Departure - Departure Disposition: 01 Home, Self Care Clinical Impression: Urinary bladder calculus Condition: Good Instructions: ED Stone Renal W Colic Prescriptions: Phenazopyridine HCl [Pyridium] 200 mg PO TID PRN #6 tablet PRN Reason: dysuria traMADol [Ultram] 50 mg PO Q6H 3 Days #12 tablet Comments: Your urinalysis does not show infection. Your CT scan shows multiple stones in your bladder, which have likely recently passed from the kidneys and will need to be urinated out. You have been hydrated with IV fluids today but is very important that you drink plenty of fluids on a daily basis to help flush out your bladder. This will allow you to pass the stone sooner. Please take the medication as prescribed to help with the discomfort.You may follow-up with urology in a couple of weeks for reevaluation. Discharge Date/Time: 05/15/19 11:13
--- NOTE | 2019-05-15 09:14 | CT Report ---
Reason: hematuria, abd pain, passed stone Procedure Date: 05/15/2019 Accession Number: [id number] / [id number] Procedure: CT - Abdomen/Pelvis WO CPT Code: Final Report FULL RESULT: EXAM: CT ABDOMEN AND PELVIS (CT KUB) EXAM DATE: 05/15/2019 08:48 AM. CLINICAL HISTORY: Hematuria. COMPARISONS: ABDOMEN/PELVIS W/ 06/01/2018 8:38 AM. TECHNIQUE: Routine axial helical CT imaging was performed through the abdomen and pelvis without IV contrast. Reconstructions: Coronal and sagittal. In accordance with CT protocol optimization, one or more of the following dose reduction techniques were utilized for this exam: automated exposure control, adjustment of mA and/or KV based on patient size, or use of iterative reconstructive technique. FINDINGS: Lung Bases: Unremarkable. Right Kidney/Ureter: No stones, hydronephrosis, or hydroureter. No perinephric fat stranding. Left Kidney/Ureter: No stones, hydronephrosis, or hydroureter. No perinephric fat stranding. There is a simple cyst emanating from the lateral cortex of the left kidney. Other Solid Organs: Noncontrast images of the solid organs are grossly unremarkable. Gallbladder/Bile Ducts: Unremarkable. Peritoneal Cavity: Stomach, small bowel, and colon demonstrate no acute abnormalities. There is borderline dilatation of the distal appendix which measures 0.8 cm in diameter. No definite evidence of significant adjacent inflammatory stranding. There is no intraperitoneal free air or free fluid. No enlarged mesenteric or retroperitoneal lymph nodes. Pelvic Organs: There are multiple small stones within the urinary bladder. The urinary bladder is decompressed. Prostate and seminal vesicles are within normal limits. There are no enlarged pelvic lymph nodes. Vasculature: Unremarkable. Other: None. IMPRESSION: 1. The kidneys demonstrate no evidence of hydronephrosis or obstructing stone. 2. There is a simple cyst emanating from the lateral cortex of the left kidney. No follow-up imaging is indicated per current consensus recommendations based on imaging criteria. 3. There are multiple stones within the urinary bladder. There is no evidence of urinary bladder wall thickening. 4. Borderline dilatation of the distal appendix. It measures up to 0.8 cm in diameter. There is no definite evidence of adjacent inflammation. Early appendicitis cannot fully be excluded. Clinical correlation recommended. [facility]
[2019-05-15 10:30] LABS: GLUCOSE, URINE (UA) NEGATIVE (NEGATIVE); KETONES,URINE (UA) TRACE mg/dL (NEGATIVE); LEUKOCYTE ESTERASE, URINE NEGATIVE (NEGATIVE); NITRITE,URINE NEGATIVE (NEGATIVE); OCCULT BLOOD,URINE LARGE (NEGATIVE); PH,URINE 5.5 PH (5.0-7.5); PROTEIN,URINE 100 mg/dL (NEGATIVE); UROBILINOGEN,URINE 0.2 (NORMAL) E.U./dL (NORMAL)
[2019-05-15 10:37] LABS: BILIRUBIN,URINE NEGATIVE (NEGATIVE); CLARITY,URINE CLEAR (CLEAR); ICTOTEST,URINE NEGATIVE
[2019-05-15 10:47] LABS: BACTERIA,URINE Few /HPF (None Seen); MUCUS,URINE Few Strands; RBC,URINE TNTC /HPF (0-5); SQUAMOUS EPITHELIAL CELL,UR RARE Squamous (<= Few)
[2019-05-15 11:11] VITALS: BP 124/80
== END 2019-05-15 11:13 | disposition home or self-care (01) ==
LOC: EDUNIT# → ED 08:13
DX: N21.0 Calculus in bladder (principal); F17.200 Nicotine dependence, unspecified, uncomplicated
CPT/HCPCS: 74176; 81001; 96374; 99283; 99284; A9270; 81003; 87086

== ENCOUNTER 2019-06-01 09:00 | Emergency (ER) | payer MEDICAID ==
--- NOTE | 2019-06-01 09:36 | ED Physician Documentation ---
PD HPI MALE - Stated complaint Stated Complaint: MALE - Chief complaint Chief Complaint: Abd Pain - History obtained from History obtained from: Patient - History of Present Illness Timing - onset: Today Timing - duration: Hours Timing - details: Abrupt onset, Still present Associated symptoms: Hematuria Similar symptoms before: Diagnosis (bladder stone) Recently seen: Emergency Dept - Additional information Additional information: 53-year-old male with a history of nephrolithiasis and bladder stones had a single large bladder stone last year that was removed and he has subsequently developed symptoms again and has had a CT scan done here in the emergency department earlier this month which showed numerous smaller bladder stones. The patient has passed numerous bladder stones and he has irritation to the bladder right now. He has not been able to get in for follow-up with the urologist as he has not been able to get into his primary for the required referral secondary to the jimenes virus. Review of Systems Constitutional: denies: Fever Eyes: denies: Decreased vision Ears: denies: Ear pain Nose: denies: Rhinorrhea / runny nose, Congestion Throat: denies: Sore throat Cardiac: denies: Chest pain / pressure, Palpitations Respiratory: denies: Dyspnea, Cough GI: denies: Abdominal Pain, Abdominal Swelling, Nausea, Vomiting : denies: Dysuria, Frequency Skin: denies: Rash Musculoskeletal: denies: Neck pain, Back pain Neurologic: denies: Generalized weakness, Focal weakness, Numbness PD PAST MEDICAL HISTORY - Past Medical History Cardiovascular: None Respiratory: None Neuro: None Endocrine/Autoimmune: None GI: None : None HEENT: None Psych: None Musculoskeletal: None Derm: None - Past Surgical History Past Surgical History: Yes Ortho: Other HEENT: Tonsil/Adenoidectomy - Present Medications Home Medications: Ambulatory Orders Medication Instructions Recorded Confirmed Meloxicam 15 mg PO DAILY 06/01/19 06/01/19 Phenazopyridine [Pyridium] 100 - 200 mg PO TID PRN #30 tablet 06/01/19 Sulfamethoxazole/Trimethoprim 1 each PO BID #14 tablet 06/01/19 [Sulfamethoxazole-Tmp Ds Tablet] - Allergies Allergies/Adverse Reactions: Allergies Allergy/AdvReac Type Severity Reaction Status Date / Time Penicillins Allergy Hives Verified 06/01/19 09:13 aspirin AdvReac Unknown Verified 06/01/19 09:13 ciprofloxacin AdvReac Hives Verified 06/01/19 09:13 - Social History Does the pt smoke?: Yes Smoking Status: Current every day smoker Does the pt drink ETOH?: No Does the pt have substance abuse?: Yes - Immunizations Immunizations are current?: Yes - POLST Patient has POLST: No PD ED PE NORMAL - Vitals Vital signs reviewed: Yes (hypertensive ) - General General: Alert and oriented X 3, No acute distress, Well developed/nourished - HEENT HEENT: Atraumatic, PERRL, EOMI - Respiratory Respiratory: No respiratory distress - Derm Derm: Normal color, Warm and dry, No rash - Extremities Extremities: No deformity, No tenderness to palpate, Normal ROM s pain, No edema, No calf tenderness / cord - Neuro Neuro: Alert and oriented X 3, nps 2-12 intact, No motor deficit, No sensory deficit, Normal speech Eye Opening: Spontaneous Motor: Obeys Commands Verbal: Oriented GCS Score: 15 - Psych Psych: Normal mood, Normal affect Results - Vitals Vitals: Vital Signs - 24 hr 06/01/19 06/01/19 06/01/19 09:02 09:13 10:39 Temperature 37.4 C 36.6 C Heart Rate 76 75 72 Respiratory 20 16 16 Rate Blood Pressure 128/84 H 115/78 112/75 O2 Saturation 100 100 100 Oxygen O2 Source Room air - Labs Labs: Laboratory Tests 06/01/19 09:20 Urine Color DARK YELLOW Urine Clarity SL. CLOUDY Urine pH 5.5 Ur Specific [place] >=1.030 H Urine Protein 100 H Urine Glucose (UA) NEGATIVE Urine Ketones NEGATIVE Urine Occult Blood LARGE H Urine Nitrite NEGATIVE Urine Bilirubin NEGATIVE Urine Urobilinogen 0.2 (NORMAL) Ur Leukocyte Esterase NEGATIVE Urine RBC TNTC H Urine WBC 6-10 H Ur Squamous Epith Cells RARE Squamous Urine Bacteria Moderate H Ur Microscopic Review INDICATED Urine Culture Comments INDICATED PD MEDICAL DECISION MAKING - ED course Complexity details: reviewed results, re-evaluated patient, considered differential, d/w patient ED course: 53-year-old male with symptomatic bladder stones has a lot of bladder irritation associated with this especially over the past several days and he does have out of his events evidence of infection in the bladder. I have reviewed his films from his recent CT scan he has a lot of stones in his bladder and I have contacted Dr. Vasquez the urologist at [place]. He recommends that we treat with Septra and he will follow-up with the patient this week.Patient is given a gram of Rocephin IM. Departure - Departure Disposition: 01 Home, Self Care Clinical Impression: Bladder calculus Urinary tract infection Qualifiers: Urinary tract infection type: acute cystitis Hematuria presence: with hematuria Qualified Code(s): N30.01 - Acute cystitis with hematuria Condition: Stable Instructions: ED UTI Cystitis Male Follow-Up: Britt Lea ARNP [Primary Care Provider] - Evans [place] MD [Physician No Access] - Prescriptions: Phenazopyridine [Pyridium] 100 - 200 mg PO TID PRN #30 tablet PRN Reason: Bladder Spasms Sulfamethoxazole/Trimethoprim [Sulfamethoxazole-Tmp Ds Tablet] 1 each PO BID #14 tablet Discharge Date/Time: 06/01/19 10:40
[2019-06-01 09:49] LABS: GLUCOSE, URINE (UA) NEGATIVE (NEGATIVE); KETONES,URINE (UA) NEGATIVE (NEGATIVE); LEUKOCYTE ESTERASE, URINE NEGATIVE (NEGATIVE); NITRITE,URINE NEGATIVE (NEGATIVE); OCCULT BLOOD,URINE LARGE (NEGATIVE); PH,URINE 5.5 PH (5.0-7.5); PROTEIN,URINE 100 mg/dL (NEGATIVE); UROBILINOGEN,URINE 0.2 (NORMAL) E.U./dL (NORMAL)
[2019-06-01 09:52] LABS: BILIRUBIN,URINE NEGATIVE (NEGATIVE); CLARITY,URINE SL. CLOUDY (CLEAR); ICTOTEST,URINE NEGATIVE
[2019-06-01] MEDS: PHENAZOPYRIDINE 100 MG TABLET PO STA (10:07)
[2019-06-01 10:14] LABS: BACTERIA,URINE Moderate /HPF (None Seen); RBC,URINE TNTC /HPF (0-5); SQUAMOUS EPITHELIAL CELL,UR RARE Squamous (<= Few)
[2019-06-01] MEDS: cefTRIAXone 1 GM VIAL IM STA (10:38)
[2019-06-01] MEDS: LIDOCAINE 1% 2 ML VIAL MC ONE (10:39)
[2019-06-01 10:40] VITALS: BP 112/75
== END 2019-06-01 10:40 | disposition home or self-care (01) ==
LOC: ED 09:00
DX: N21.0 Calculus in bladder (principal); N30.01 Acute cystitis with hematuria; F17.200 Nicotine dependence, unspecified, uncomplicated
CPT/HCPCS: 81001; 87086; 96372; 99283; A9270; 81003

== ENCOUNTER 2019-10-10 08:00 | Outpatient (CLI) | payer MEDICAID | END 2019-10-10 23:59 | disposition home or self-care (01) | LOC: LAB.R 08:00 | PROVIDERS: ATTEND Registered Nurse | DX: R14.0 Abdominal distension (gaseous) (principal) | CPT/HCPCS: 82274 ==

== ENCOUNTER 2020-03-28 07:49 | Outpatient (CLI) | payer MEDICAID ==
--- NOTE | 2020-03-28 09:03 | XRAY Report ---
PROCEDURE: Abdomen 2 View X-Ray INDICATIONS: IBS TECHNIQUE: 2 views of the abdomen were acquired. COMPARISON: 05/22/2016 FINDINGS: Surgical changes and devices: None. Bowel: No pneumoperitoneum. The bowel gas pattern is normal. Moderate stool Soft tissues: No masses; visualized solid organ contours appear normal in size. Redemonstrated curvi linear hepatic calcifications, chronic. Bones: No suspicious bony abnormalities. IMPRESSION: Moderate stool. No specific evidence of bowel obstruction although continued surveillanc e with abdominal radiographs could be performed if the patient's symptoms do not improve. Reviewed by: Blu Mcdowell MD on 03/28/2020 9:01 AM PST Approved by: Blu Mcdowell MD on 03/28/2020 9:01 AM PST Station ID: [id number]
[2020-03-28 14:55] LABS: BASOPHILS % (AUTO) 0.5 %; EOSINOPHILS # (AUTO) 0.1 10^3/uL (0.0-0.7); EOSINOPHILS % (AUTO) 1.8 %; LYMPHOCYTES # (AUTO) 2.1 10^3/uL (1.5-3.5); LYMPHOCYTES % (AUTO) 28.9 %; MEAN CORPUSCULAR HEMOGLOBIN 29.9 pg (27.0-31.0); MEAN CORPUSCULAR HGB CONC 32.9 g/dL (32.0-36.0); MEAN CORPUSCULAR VOLUME 90.8 fL (80.0-94.0); MEAN PLATELET VOLUME 11.9 fL (7.4-11.4); MONOCYTES # (AUTO) 0.8 10^3/uL (0.0-1.0); MONOCYTES % (AUTO) 10.4 %; NEUTROPHILS # (AUTO) 4.2 10^3/uL (1.5-6.6); NEUTROPHILS % (AUTO) 57.9 %; PLT - PLATELET COUNT 239 10^3/uL (130-450); RED BLOOD COUNT 5.02 10^6/uL (4.70-6.10); RED CELL DISTRIBUTION WIDTH 12.5 % (12.0-15.0); WHITE BLOOD COUNT 7.3 x10^3/uL (4.8-10.8)
[2020-03-28 15:21] LABS: ALBUMIN 4.6 g/dL (3.2-5.5); ALBUMIN/GLOBULIN RATIO 1.2 (1.0-2.2); ALKALINE PHOSPHATASE 51 IU/L (42-121); ALT ALANINE AMINOTRANSFERASE 28 IU/L (10-60); AST ASPARTATE AMINOTRANSFERASE 21 IU/L (10-42); BILIRUBIN,TOTAL 0.5 mg/dL (0.2-1.0); BUN - BLOOD UREA NITROGEN 27 mg/dL (6-20); CALCIUM 9.9 mg/dL (8.5-10.3); CARBON DIOXIDE - CO2 27 mmol/L (21-32); CHLORIDE 98 mmol/L (101-111); CHOL/HDL RATIO 2.6 (<5.0); CHOLESTEROL 108 mg/dL; CREATININE 1.3 mg/dL (0.6-1.2); GLUCOSE 109 mg/dL (70-100); HDL CHOLESTEROL 41 mg/dL; LDL CHOLESTEROL,CALCULATED 56 mg/dL; LDL/HDL RATIO 1.4 (<3.6); TOTAL PROTEIN 8.5 g/dL (6.7-8.2); VLDL CHOLESTEROL 11 mg/dL
[2020-03-28 15:23] LABS: CRP - C-REACTIVE PROTEIN < 1.0 mg/dL (0-1.0)
== END 2020-03-28 07:50 | disposition home or self-care (01) ==
LOC: DI.S 07:49
PROVIDERS: ATTEND Registered Nurse
DX: K58.9 Irritable bowel syndrome, unspecified (principal); R14.0 Abdominal distension (gaseous); K21.9 Gastro-esophageal reflux disease without esophagitis; G47.00 Insomnia, unspecified; F17.200 Nicotine dependence, unspecified, uncomplicated
CPT/HCPCS: 36415; 80050; 80061; 83721; 85651; 86140

== ENCOUNTER 2020-05-23 17:10 | Outpatient (CLI) | payer MEDICAID | END 2020-05-23 17:11 | disposition home or self-care (01) | LOC: COV 17:10 | PROVIDERS: ATTEND Family Medicine | DX: Z20.822 Contact with and (suspected) exposure to COVID-19 (principal) ==

== ENCOUNTER 2022-01-29 07:01 | Outpatient (CLI) | payer MEDICAID ==
[2022-01-29 13:51] LABS: BASOPHILS # (AUTO) 0.1 10^3/uL (0.0-0.1); BASOPHILS % (AUTO) 0.9 %; EOSINOPHILS # (AUTO) 0.2 10^3/uL (0.0-0.7); EOSINOPHILS % (AUTO) 3.5 %; HCT - HEMATOCRIT 40.8 % (42.0-52.0); HGB - HEMOGLOBIN 13.1 g/dL (14.0-18.0); MEAN CORPUSCULAR HEMOGLOBIN 29.3 pg (27.0-31.0); MEAN CORPUSCULAR HGB CONC 32.1 g/dL (32.0-36.0); MEAN CORPUSCULAR VOLUME 91.3 fL (80.0-94.0); MONOCYTES # (AUTO) 0.8 10^3/uL (0.0-1.0); MONOCYTES % (AUTO) 14.1 %; NEUTROPHILS # (AUTO) 2.4 10^3/uL (1.5-6.6); NEUTROPHILS % (AUTO) 44.1 %; PLT - PLATELET COUNT 262 10^3/uL (130-450); RED BLOOD COUNT 4.47 10^6/uL (4.70-6.10); RED CELL DISTRIBUTION WIDTH 12.6 % (12.0-15.0); WHITE BLOOD COUNT 5.4 x10^3/uL (4.8-10.8)
[2022-01-29 13:59] LABS: ALBUMIN/GLOBULIN RATIO 1.3 (1.0-2.2); ALKALINE PHOSPHATASE 60 IU/L (42-121); ALT ALANINE AMINOTRANSFERASE 36 IU/L (10-60); AST ASPARTATE AMINOTRANSFERASE 24 IU/L (10-42); BILIRUBIN,TOTAL 0.2 mg/dL (0.2-1.0); BUN - BLOOD UREA NITROGEN 26 mg/dL (6-20); CALCIUM 9.3 mg/dL (8.5-10.3); CARBON DIOXIDE - CO2 29 mmol/L (21-32); CHLORIDE 102 mmol/L (101-111); CHOL/HDL RATIO 3.2 (<5.0); CHOLESTEROL 84 mg/dL; CREATININE 1.1 mg/dL (0.6-1.2); GFR - MDRD 70 (>89); GLUCOSE 93 mg/dL (70-100); HDL CHOLESTEROL 26 mg/dL; LDL CHOLESTEROL,CALCULATED 27 mg/dL; POTASSIUM 3.9 mmol/L (3.5-5.0); SODIUM 138 mmol/L (135-145); TOTAL PROTEIN 7.1 g/dL (6.7-8.2); TRIGLYCERIDES 153 mg/dL; VLDL CHOLESTEROL 31 mg/dL
[2022-01-29 14:12] LABS: THYROID STIMULATING HORMONE 3.07 uIU/mL (0.34-5.60)
== END 2022-01-29 07:02 | disposition home or self-care (01) ==
LOC: LAB.S 07:01
PROVIDERS: ATTEND Registered Nurse
DX: K58.9 Irritable bowel syndrome, unspecified (principal); K21.9 Gastro-esophageal reflux disease without esophagitis; F17.200 Nicotine dependence, unspecified, uncomplicated; Z79.899 Other long term (current) drug therapy
CPT/HCPCS: 36415; 80050; 80061; 83721

== ENCOUNTER 2022-03-15 14:43 | Outpatient (CLI) | payer MEDICAID ==
--- NOTE | 2022-03-16 10:06 | CT Report ---
PROCEDURE: Low Dose Lung Cancer Screen INDICATIONS: TOBACCO USE TECHNIQUE: Noncontrast low-dose axial images were acquired from the pulmonary apices to the posterior costophren ic angles. Multiplanar MIP reformats were then reconstructed. For radiation dose reduction, the follo wing was used: automated exposure control, adjustment of mA and/or kV according to patient size. COMPARISON: CT abdomen 05/15/2019 FINDINGS: Image quality: Good, allowing for low radiation dose Lungs and pleura: Scattered scarring and atelectasis, particularly at the apices. Emphysema. Suspecte d mucous plugging and bronchial wall thickening seen in the left lower lobe (). Small micronodul es are also present, for example in the right image medially. No pleural effusion. Mediastinum, heart, and esophagus: Patulous esophagus, nonspecific. No pathologic adenopathy by size criteria. Heart size is normal. Chest wall and thyroid: Thyroid is unremarkable. Chest wall is otherwise unremarkable. Upper abdomen: The liver dome calcification/hyperdensity appears similar to prior. No gross abnormali ty in the partially visualized Limited evaluation of the abdomen. Bones: No acute or suspicious osseous finding. IMPRESSION: Endobronchial nodularity and suspected debris with wall thickening of the left lower lobe. This is te chnically categorized as lung RADS 4A, although overall low suspicion. Three-month low-dose CT follow -up is recommended. Other micronodules are present. Reviewed by: Jamie العلي MD on 03/16/2022 10:05 AM PST Approved by: Jamie العلي MD on 03/16/2022 10:05 AM PST Station ID: [id number]
== END 2022-03-15 14:44 | disposition home or self-care (01) ==
LOC: DI 14:43
PROVIDERS: ATTEND Registered Nurse
DX: Z12.2 Encounter for screening for malignant neoplasm of respiratory organs (principal); F17.210 Nicotine dependence, cigarettes, uncomplicated; R91.8 Other nonspecific abnormal finding of lung field

== ENCOUNTER 2022-07-04 14:54 | Outpatient (CLI) | payer MEDICAID ==
--- NOTE | 2022-07-05 10:31 | CT Report ---
PROCEDURE: CHEST WO INDICATIONS: ABN FINDINGS ON IMAGING TECHNIQUE: Noncontrast 1mm axial images were acquired from the pulmonary apices to the posterior costophrenic an gles. Axial 5 mm soft tissue kernel reconstructions were performed as well as 8 mm axial MIP and cor onal and sagittal 5 mm reformations. For radiation dose reduction, the following was used: automate d exposure control, adjustment of mA and/or kV according to patient size. COMPARISON: CT chest 03/15/2022 FINDINGS: Lymph nodes: No evidence of thoracic lymphadenopathy however evaluation for mediastinal and hilar kat nopathy is limited in the absence of intravenous contrast. Vasculature: Aorta and main pulmonary artery diameters are within normal range. Heart: No pericardial effusion. Lung parenchyma and pleura: Moderate emphysema. Scattered areas of atelectasis and/or scarring redemo nstrated, for example at the lung apices. Previously described mucous plugging and bronchial wall thi ckening at the left lower lobe appears resolved. Other previously described micronodules for example a 3 mm nodule at the medial right upper lobe (4/152) are also unchanged. No pleural effusion. Chest wall/musculoskeletal: Multilevel degenerative change of the visualized spine. Visualized upper abdomen: Coarse calcifications present at the upper liver, probably postinflammatory . IMPRESSION: Previously described mucous plugging and bronchial wall thickening at the left lower lobe appears res olved. Reviewed by: Valentino Anthony MD on 07/05/2022 10:30 AM PDT Approved by: Valentino Anthony MD on 07/05/2022 10:30 AM PDT Station ID: [id number]
== END 2022-07-04 14:55 | disposition home or self-care (01) ==
LOC: DI 14:54
PROVIDERS: ATTEND Registered Nurse
DX: R91.8 Other nonspecific abnormal finding of lung field (principal)

== ENCOUNTER 2023-04-16 07:24 | Outpatient (CLI) | payer MEDICAID ==
[2023-04-16 14:53] LABS: BASOPHILS # (AUTO) 0.1 10^3/uL (0.0-0.1); BASOPHILS % (AUTO) 1.2 %; EOSINOPHILS # (AUTO) 0.2 10^3/uL (0.0-0.7); EOSINOPHILS % (AUTO) 3.3 %; HCT - HEMATOCRIT 42.2 % (42.0-52.0); HGB - HEMOGLOBIN 13.2 g/dL (14.0-18.0); LYMPHOCYTES # (AUTO) 1.8 10^3/uL (1.5-3.5); LYMPHOCYTES % (AUTO) 34.8 %; MEAN CORPUSCULAR HEMOGLOBIN 28.9 pg (27.0-31.0); MEAN CORPUSCULAR HGB CONC 31.3 g/dL (32.0-36.0); MEAN CORPUSCULAR VOLUME 92.3 fL (80.0-94.0); MEAN PLATELET VOLUME 10.9 fL (7.4-11.4); MONOCYTES # (AUTO) 0.6 10^3/uL (0.0-1.0); MONOCYTES % (AUTO) 11.9 %; NEUTROPHILS # (AUTO) 2.5 10^3/uL (1.5-6.6); NEUTROPHILS % (AUTO) 48.6 %; PLT - PLATELET COUNT 254 10^3/uL (130-450); RED BLOOD COUNT 4.57 10^6/uL (4.70-6.10); RED CELL DISTRIBUTION WIDTH 12.8 % (12.0-15.0); WHITE BLOOD COUNT 5.1 x10^3/uL (4.8-10.8)
[2023-04-16 15:54] LABS: ALBUMIN 4.5 g/dL (3.2-5.5); ALBUMIN/GLOBULIN RATIO 1.7 (1.0-2.2); ALKALINE PHOSPHATASE 49 IU/L (42-121); ALT ALANINE AMINOTRANSFERASE 32 IU/L (10-60); AST ASPARTATE AMINOTRANSFERASE 20 IU/L (10-42); BILIRUBIN,TOTAL 0.3 mg/dL (0.2-1.0); BUN - BLOOD UREA NITROGEN 27 mg/dL (6-20); CALCIUM 9.7 mg/dL (8.5-10.3); CARBON DIOXIDE - CO2 30 mmol/L (21-32); CHLORIDE 107 mmol/L (101-111); CHOL/HDL RATIO 2.6 (<5.0); CHOLESTEROL 111 mg/dL; CREATININE 1.3 mg/dL (0.6-1.3); GFR - MDRD 57 (>89); GLUCOSE 111 mg/dL (74-104); HDL CHOLESTEROL 43 mg/dL; LDL CHOLESTEROL,CALCULATED 55 mg/dL; LDL/HDL RATIO 1.3 (<3.6); POTASSIUM 4.1 mmol/L (3.5-4.5); SODIUM 140 mmol/L (135-145); TOTAL PROTEIN 7.2 g/dL (6.4-8.9); TRIGLYCERIDES 66 mg/dL (48-352); VLDL CHOLESTEROL 13 mg/dL
== END 2023-04-16 07:25 | disposition home or self-care (01) ==
LOC: LAB.S 07:24
PROVIDERS: ATTEND Registered Nurse
DX: Z13.220 Encounter for screening for lipoid disorders (principal); Z12.5 Encounter for screening for malignant neoplasm of prostate; Z79.899 Other long term (current) drug therapy
CPT/HCPCS: 36415; 80053; 80061; 83721; 84153; 85025